=== PATIENT | male | born 1955 | race Caucasian/White ===

== ENCOUNTER → 2018-12-19 13:24 | Outpatient (CLI) | payer OTHER, SELFPAY ==
--- NOTE | 2018-12-19 | DI.MRI.S_ITS ---
PROCEDURE: MR LUMBAR SPINE WO CON INDICATIONS: Left lower back pain TECHNIQUE: Noncontrast sagittal T1 spin echo and T2 fast echo, sagittal STIR, axial T1 and T2 fast spin echo through the lumbar spine. In cases with scoliosis, additional coronal T2 fast spin echo may be performed. COMPARISON: None. FINDINGS: Image quality: Excellent. Alignment and Curvature: There is trace L2-L3 and L3-L4 retrolisthesis. There is approximately 19? of convex right lumbar spine scoliosis. Bone Marrow: Reactive endplate change is noted adjacent to the L2-L3, L3-L4 and L5-S1 discs. No acute vertebral body compression fractures. Spinal Cord: Conus medullaris terminates at the L1 level. Visualized cord demonstrates normal signal and size. Paraspinous Soft Tissues: No paravertebral masses. Large partially visualized left renal cyst. L1-L2: Loss of disc signal and height. Mild, diffuse disc bulge. Mild narrowing of the central canal. Mild bilateral neural foraminal narrowing. No neural impingement. L2-L3: Loss of disc signal and height. Moderate, diffuse disc bulge. Mild to moderate narrowing of the central canal. Mild right and moderate left neural foraminal narrowing. No neural impingement. L3-L4: Loss of disc signal and height. Moderate, diffuse disc bulge. Mild left facet hypertrophy. Mild to moderate narrowing of the central canal. Mild right and severe left neural foraminal narrowing with slight compression of the exiting left L3 nerve root. L4-L5: Loss of disc signal and height. Mild, diffuse disc bulge. Mild bilateral facet hypertrophy. Mild to moderate narrowing of the central canal. Moderate to severe right and moderate left neural foraminal narrowing with slight compression of the exiting right L4 nerve root. L5-S1: Loss of disc signal. Mild, diffuse disc bulge. Small right central disc protrusion. Disc protrusion impinges upon the exiting right S1 nerve root. No central stenosis. Mild right facet hypertrophy. Severe right mild left neural foraminal narrowing with compression of the exiting right L5 nerve root. IMPRESSION: 1. Convex-right scoliosis. 2. Multilevel degenerative disc disease. 3. Multilevel facet arthropathy. 4. Mild to moderate L2-L3, L3-L4 and L4-L5 central canal narrowing. Mild L1-L2 central. 5. Mild right and severe left L3-L4 neural foraminal narrowing. Severe right and mild left L5-S1 neural foraminal narrowing. Moderate to severe right and moderate left L4-L5 neural foraminal narrowing. Mild right and moderate left L2-L3 neural foraminal narrowing. Mild bilateral L1-L2 neural foraminal narrowing. 6. L5-S1 right central disc protrusion which impinges upon the traversing right S1 nerve root. Please correlate with clinical data. 7. Slight compression of the exiting left L3 nerve root, the exiting right L4 nerve root and the exiting right L5 nerve root secondary to neural foraminal narrowing. Please correlate with clinical data. Dictated by: Fannie Sim MD, PhD on 12/21/2018 at 13:49 Approved by: Fannie Sim MD, PhD on 12/21/2018 at 14:00
== END ==
PROVIDERS: PCP Family Medicine; Visit Provider Orthopaedic Surgery
DX: M51.36 Other intervertebral disc degeneration, lumbar region (principal); M51.37 Other intervertebral disc degeneration, lumbosacral region; M48.061 Spinal stenosis, lumbar region without neurogenic claudication; M48.07 Spinal stenosis, lumbosacral region; M47.817 Spondylosis without myelopathy or radiculopathy, lumbosacral region; M47.816 Spondylosis without myelopathy or radiculopathy, lumbar region; M51.27 Other intervertebral disc displacement, lumbosacral region; M41.9 Scoliosis, unspecified
CPT/HCPCS: 72148

== ENCOUNTER → 2020-02-18 10:53 | Outpatient (CLI) | payer OTHER, SELFPAY ==
--- NOTE | 2020-02-18 | DI.RAD.S_ITS ---
PROCEDURE: XR HAND RT MIN 3V INDICATIONS: Pain in right hand, heater fell on index finger TECHNIQUE: 3 views of the hand(s) acquired. COMPARISON: None. FINDINGS: Bones: No fractures or dislocations. Carpal bones are normally aligned. No suspicious bony lesions. Soft tissues: No suspicious soft tissue calcifications. IMPRESSION: No acute radiographic findings. If pain persists, followup imaging in 5-7 days is recommended to exclude occult fracture. Dictated by: Joaquina Hamilton M.D. on 02/18/2020 at 13:16 Approved by: Joaquina Hamilton M.D. on 02/18/2020 at 13:17
== END ==
PROVIDERS: PCP Family Medicine
DX: M79.641 Pain in right hand (principal)
CPT/HCPCS: 73130

== ENCOUNTER → 2020-02-28 08:36 | Outpatient (CLI) | payer OTHER, SELFPAY ==
[2020-02-29 20:10] LABS: COVID19 Sendout Not Detected (Not Detect)
== END ==
PROVIDERS: PCP Family Medicine; Visit Provider Physician Assistant
DX: Z11.59 Encounter for screening for other viral diseases (principal)
CPT/HCPCS: 87635

== ENCOUNTER 2020-03-02 08:20 | Outpatient (CLI) | payer OTHER, SELFPAY ==
[2020-03-02] VITALS (8 sets, daily range): BP systolic 125–163; BP diastolic 82–96; PULSE 67–74; RESP 12–23; TEMP 36.2; O2SAT 95–99
--- NOTE | 2020-03-02 08:22 | DI.RAD.S_ITS ---
PROCEDURE: PAIN L/SI FACET INJ/BLK 1STL INDICATIONS: SPONDYLOSIS COMPARISON: None. FINDINGS: Fluoroscopic spot filming was performed to verify placement of spinal needles at the left L4-5 and L5-S1 facet joint level(s), as labeled on the films. Appropriate location(s) of the needle tip(s) was confirmed by injection of iodinated contrast. IMPRESSION: Successful needle tip localization for left-sided facet joint injections at L4-5 and L5-S1. Dictated by: Jonah Malhotra M.D. on 03/02/2020 at 10:23 Approved by: Jonah Malhotra M.D. on 03/02/2020 at 10:23
[2020-03-02] MEDS: MIDAZOLAM 5 MG/5 ML VIAL IV (09:02)
[2020-03-02] MEDS: fentaNYL 100 MCG/2 ML INJ 50 MCG IV (09:02)
[2020-03-02] MEDS: BUPIVACAINE 0.5% (PF) VIAL 5 ML INJ (09:08)
[2020-03-02] MEDS: IOPAMIDOL 15 ML VIAL 3 ML INJ (09:09)
[2020-03-02] MEDS: BETAMETHASONE 30 MG/5 ML MDV 12 MG INJ (09:09)
--- NOTE | 2020-03-02 09:16 | P.PCN_ITS ---
Date/Time/Diagnoses Date of procedure: 03/02/20 Time of procedure: 09:16 Pre-procedure diagnosis: 1. FACET ARTHROPATHY, 2. AXIAL LBP, 3. MULTILEVEL DDD Post-procedure diagnosis: same Procedure Notes Procedure: 1. FLUOROSCOPICALLY GUIDED CONTRAST CONTROLLED FACET JOINT INJECTIONS LEFT L4/5, L5/S1 Indications: Leno is referred by for treatment of Axial LBP Physician: Andre Arzate Total Fluoroscopy time (seconds): 8 Total sedation minutes: 10 Complications: none Procedure in detail & Post-procedure care: FINDINGS Multilevel Facet Arthropathy with Clinically significant axial LBP DESCRIPTION OF PROCEDURE Fluoroscopically guided, contrast-controlled left L4/5, L5/S1 facet joint injections. Following review of allergy and review of potential side effects and complications, including, but not necessarily limited to, infection, allergic reaction, local tissue breakdown, stroke, temporary or permanent nerve injury, paralysis, and possible , the patient indicated that the patient understood and agreed to proceed. An informed consent document was signed by the patient, witnessed by a nurse, and placed in the patient's chart. Additionally, other treatment options including medications, modalities, and physical therapy were reviewed with the patient. After review of previous anaesthesic history and IV conscious sedation the patient was deemed safe to proceed with today?s procedure with IV conscious sedation as ASA class II designation. Safety time-out was performed to confirm patient ID, procedure to be performed and site of procedure. IV sedation was accomplished with a combination of 2mg of Versed and 50mcg of Fentanylwas administered by the RN after DO order, titrated to patient comfort during the course of the procedure while the patient remained responsive to all verbal commands. In the prone position, following sterile prep and drape of the lumbar region, the posterior aspect of the left L4/5, L5/S1 facet joints were identified fluoroscopically. The skin was anesthetized via a 25-gauge 1.5-inch needle with 1% lidocaine solution into the corresponding facet joints. At this point, a 22- gauge 3.5-inch spinal needle was atraumatically introduced and advanced under fluoroscopic guidance into the corresponding facet joints. Following negative aspiration, injections of approximately 0.2-cc of Isovue 200 confirmed in terarticular placement without vascular uptake. Radiological data, including multiple fluoroscopic views of the lumbosacral spine, reveal a spinal needle at the left L4/5, L5/S1 facet joints. Subsequent views show flow of contrast material both superiorly and inferiorly within the joint space without vascular or intrathecal uptake. At this point, a total of 0.5cc including a mixture of 0.25cc Marcaine and 0.25cc betamethasone was injected without complication into each of the corresponding facet joints. The procedure tolerated the procedure well without signs or symptoms of complications prior to transfer to the recovery area continued monitoring without incident. The patient was then transferred to the recovery area where they were observed for an appropriate period of time after the injection. The patient reported a VAS score of 7 prior to the procedure and a post-procedure VAS of 0. POST OP INSTRUCTIONS The patient was provided a Pain Log to continue to record their response to the target-specific procedure prior to follow-up visit with their referring physician. Additionally, specific post-injection care instructions and a contact number to our office were provided if concerns arise regarding possible complications associated with the procedure are suspected.
--- NOTE | 2020-03-02 15:43 | PC.NURSE ---
Fentanyl and versed given by this RN all other meds scanned given by Dr Arzate. Patient was stable and transferred to [facility].
== END 2020-03-02 09:42 | disposition home or self-care (01) ==
LOC: RAD 08:21
PROVIDERS: PCP Family Medicine; Referring Provider Family Medicine; Visit Provider Physical Medicine & Rehabilitation
DX: M47.816 Spondylosis without myelopathy or radiculopathy, lumbar region (principal); M47.817 Spondylosis without myelopathy or radiculopathy, lumbosacral region; M54.5 Low back pain; M51.36 Other intervertebral disc degeneration, lumbar region; M51.37 Other intervertebral disc degeneration, lumbosacral region
CPT/HCPCS: 64493; 64494; 99152; J0702; J2250; J3010